=== PATIENT | female | born 1945 | race Caucasian/White ===

== ENCOUNTER → 2021-12-13 | Day surgery (SDC) | payer MEDICARE ==
[~2021-12-13] VITALS: Ht 157.5 cm; Wt 59.0 kg
[~2021-12-13] MED LIST: ANASTROZOLE1 M1 PO; ASPIRIN CHEWABL81 MG PO; LIPITOR 10MG TA10 MG PO; MULTIVITAMINS1 EAC1 PO; PAROXETINE 10MG10 MG PO; PROLIA60 MG/1 ML IJ; TRIAMTERENE-HC1 EACH PO; VITAMIN D2000 UNI1 PO; [UNRECOGNIZED DRUG - OTHER] PO
== END | disposition home or self-care (01) ==
LOC: FAS 07:00
DX: Z12.11 Encounter for screening for malignant neoplasm of colon (principal); I10 Essential (primary) hypertension; E78.00 Pure hypercholesterolemia, unspecified; Z80.0 Family history of malignant neoplasm of digestive organs; Z86.010 Personal history of colon polyps
CPT/HCPCS: J2704; J7120